=== PATIENT | male | born 1990 | race Caucasian/White ===

== ENCOUNTER 2018-12-25 22:04 | Emergency (ER) | payer SELFPAY ==
[~2018-12-25] VITALS: Ht 180.3 cm; Wt 111.1 kg
[2018-12-25 22:06] VITALS: BP 161/101
--- NOTE | 2018-12-25 22:21 | PCM.EKG ---
[facility] Test Date: 2018-12-25 Test Time: 22:14:46 Pat Name: KORTNEY CHAVARRIA Department: Room: Gender: M Yarn Dyer: : 1990 Requested By: SPRING CONNER Order Number: [id number] Reading MD: Spring CONNER Measurements Intervals [place] Rate: 100 P: 45 VA: 120 QRS: 36 QRSD: 70 T: 47 QT: 326 QTc: 420 Interpretive Statements Normal sinus rhythm Normal ECG No previous ECG available for comparison Electronically Signed On 12-27-2018 23:42:59 CDT by Spring CONNER Please click the below link to view image of tracing.
[2018-12-25 22:27] LABS: BASOPHIL % 0.3 % (0.0-0.2); EOSINOPHIL # 0.2 10^3/uL (0.0-0.2); EOSINOPHIL % 2.2 % (0.0-5.0); LYMPHOCYTES % 27.9 % (24.0-44.0); MEAN CORP HGB 30.1 pg (26-34); MONOCYTES # 1.5 10^3/uL (0.3-0.8); MONOCYTES % 13.6 % (5.0-12.0); NEUTROPHILS % 55.7 % (41.0-85.0); RED CELL DISTRIBUTION WIDTH 13.3 % (11.5-14.5)
[2018-12-25] MEDS ORDERED: ATIVAN IV STA (22:27)
--- NOTE | 2018-12-25 22:29 | ER.PDOC ---
General Chief Complaint: Chest Pain-Cardiac Nature Stated Complaint: CHEST PAIN Time seen by MD: 22:28 Source: patient Exam Limitations: no limitations History of Present Illness Initial Comments Chest pain, has anxiety. Timing/Duration: 1 hour Severity/Quality: moderate, tightness Radiation: no radiation Nitro Today/Relief: No Nitro Taken Today Aspirin Today: No Aspirin Today Associated Symptoms: shortness of breath Prior symptoms/Treatment: Similar symptoms previous Allergies: Coded Allergies: No Known Drug Allergies (Verified Allergy, Unknown, 12/25/18) Past Medical History Medical History: no pertinent history Surgical History: no surgical history Social History Smoking: less than 1 pack/day Alcohol Use: occassionally Drug Use: none Constitutional: no symptoms reported EENTM: no symptoms reported Respiratory: see HPI Cardiovascular: see HPI Gastrointestinal: no symptoms reported All Other Systems: Reviewed and Negative Physical Exam General Appearance: No Apparent Distress, WD/WN, Anxious Neck: Non-Tender, Full Range of Motion, Supple, Normal Inspection Respiratory: chest non-tender, lungs clear, normal breath sounds, no respiratory distress, no accessory muscle use Cardiovascular: Normal Peripheral Pulses, Regular Rate, Rhythm, No Edema, No Gallop, No JVD, No Murmur Gastrointestinal: Normal Bowel Sounds, No Organomegaly, No Pulsatile Mass, Non Tender, Soft Extremities: Normal Range of Motion, Non-Tender, Normal Inspection, No Pedal Edema, No Calf Tenderness, Normal Capillary Refill 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 as Tested, No Motor/Sensory Deficits, Alert, Normal Mood/Affect, Oriented x 3 Skin: Normal Color, Warm/Dry Results/Orders Results/Orders Orders - SPRING CONNER MD Cbc With Auto Diff (12/25/18 22:19) Comprehensive Metabolic Panel (12/25/18 22:19) Creatine Kinase (12/25/18 22:19) Troponin I (12/25/18 22:19) D-Dimer (12/25/18 22:19) Xr Chest 1v (12/25/18 22:19) Ekg-Routine (12/25/18 22:19) Lorazepam (Ativan) (12/25/18 22:27) Vital Signs Date Time Temp Pulse Resp B/P (MAP) Pulse Ox O2 Delivery O2 Flow Rate FiO2 12/25/18 22:06 98.1 99 20 98 Room Air 12/25/18 22:06 98.1 99 20 161/101 (121) 98 Room Air 12/25/18 22:06 98.1 99 20 Progress Progress Patient old that his liver enzymes are high. He is a heavy alcohol drinker and I counselled him to stop. He knows that he will have to follow up with his PCP in 2-3 days. EKG/XRAY/CT/US EKG: NSR XRAY: chest (No active disease) Departure Time of Disposition: 23:07 Disposition: 01 HOME, SELF-CARE Impression: Primary Impression: Anxiety Additional Impression: Elevated liver enzymes Condition: Stable Referrals: NORMA WATTS MD (PCP) PRIMARY CARE PROVIDER Additional Instructions: F/U with your PCP in 2-3 days Duration or Time Spent with Pa: 60 mins Problem Qualifiers SPRING CONNER MD Dec 25, 2018 22:29
[2018-12-25] MEDS ORDERED: ATIVAN ONE (22:33)
--- NOTE | 2018-12-25 22:42 | DIREP ---
PROCEDURE:CHEST 1 VIEW COMPARISON:None. INDICATIONS:Chest pain FINDINGS: LUNGS/PLEURA:No significant pulmonary parenchymal abnormalities. No effusions. VASCULATURE:Normal. Unremarkable pulmonary vasculature. CARDIAC:Normal. No cardiac silhouette abnormality or cardiomegaly. MEDIASTINUM:Normal. No visible mass or adenopathy. BONES:Normal. No fracture or visible bony lesion. OTHER:Negative. CONCLUSION:Normal examination. Dictated by: Onofre Martino M.D. on 12/25/2018 at 10:37 PM
[2018-12-25 22:46] LABS: ALANINE AMINOTRANSFERASE(ML) 134 U/L (12-78); ALKALINE PHOSPHATASE 87 U/L (50-136); ASPARTATE AMINO TRANSFERASE 51 U/L (0-35); CALCIUM 9.4 mg/dL (8.4-10.5); CARBON DIOXIDE 25.6 mmol/L (20.0-32); GLUCOSE 116 mg/dL (70-110)
[2018-12-25 23:15] VITALS: BP 129/70
== END 2018-12-25 23:17 | disposition home or self-care (01) ==
LOC: ER 22:04
DX: F41.9 Anxiety disorder, unspecified (principal); F17.210 Nicotine dependence, cigarettes, uncomplicated; R74.8 Abnormal levels of other serum enzymes
CPT/HCPCS: 36415; 71045; 80053; 82550; 84484; 85025; 85379; 93005; 96374; 99285; J2060